=== PATIENT | female | born 1970 | race African-American/Black ===

== ENCOUNTER 2018-12-04 09:57 | Emergency (ER) | payer SELFPAY ==
[2018-12-04 11:00] LABS: Bilirubin Negative (Negative); Blood, Urine Moderate (Negative); Clarity CLOUDY (Clear); Glucose, Urine (Dipstick) Negative (Negative); Leukocyte Small (Negative); Nitrite Negative (Negative); Protein, Urine (Dipstick) 30 mg/dL (Neg-Trace); Urobilinogen 0.2 mg/dL (0.2-1.0)
[2018-12-04 11:02] LABS: Pregnancy Test - Urine (BHCG) Negative (Negative); Pregu Control Background? CLEAR/WHITE (CLR/WHITE); Pregu Control Bar Appear? YES (CONTROL BAR)
[2018-12-04 11:03] LABS: #Eosinphils 0.1 thou/uL (0.0-0.7); #Lymphocytes 2.7 thou/uL (1.20-3.40); #Monocytes 0.4 thou/uL (0.11-0.59); #Neutrophils 3.4 thou/uL (1.40-6.50); %Basophils 0.6 % (0.0-1.0); %Eosinophils 1.7 % (0.0-10.0); %Lymphocytes 40.4 % (21.0-51.0); %Monocytes 6.3 % (0.0-10.0); %Neutrophils 51.1 % (42.0-75.0); Hemoglobin 13.3 g/dL (12.0-16.0); Mean Corpuscular HGB CONC 30.8 g/dL (32.0-36.0); Mean Corpuscular Hemoglobin 26.9 pg (27.0-31.0); Mean Corpuscular Volume 87.4 fL (78.0-98.0); Mean Platelet Volume 7.6 fL (7.4-10.4); Platelet Count 412 thou/uL (130-400); RBC Distribution Width 12.6 % (11.5-14.5); Red Blood Cell (RBC) Count 4.93 mill/uL (4.20-5.40); White Blood Cell (WBC) Count 6.6 thou/uL (4.8-10.8)
[2018-12-04 11:07] LABS: Bacteria/HPF None Seen HPF (None Seen); Hyaline Casts/LPF 4-6 HYALINE CAST LPF (0-3 Hyaline); Pathc Cast-AUWi Flag 0.87 (0-2.49); RBC/HPF 21-50 HPF (0-3); WBC/HPF 21-50 HPF (0-3)
[2018-12-04] MEDS ORDERED: cloNIDine 0.1 MG TAB ONE (12:17)
== END 2018-12-04 12:35 | disposition home or self-care (01) ==
LOC: ERS 09:57
DX: N89.9 Noninflammatory disorder of vagina, unspecified (principal); Z91.14 Patient's other noncompliance with medication regimen; I10 Essential (primary) hypertension; F17.210 Nicotine dependence, cigarettes, uncomplicated; F32.9 Major depressive disorder, single episode, unspecified
CPT/HCPCS: 36415; 81003; 81015; 81025; 85025; 99283

== ENCOUNTER 2021-01-15 10:17 | Outpatient (CLI) | payer OTHER | END 2021-01-15 10:18 | disposition home or self-care (01) | LOC: RAD 10:17 | PROVIDERS: ATTEND Neurological Surgery | DX: M47.26 Other spondylosis with radiculopathy, lumbar region (principal) | CPT/HCPCS: 72100 ==

== ENCOUNTER 2021-03-09 13:17 | Outpatient (CLI) | payer OTHER | END 2021-03-09 13:18 | disposition home or self-care (01) | LOC: TBSIIMAG 13:17 | PROVIDERS: ATTEND Neurological Surgery | DX: M47.26 Other spondylosis with radiculopathy, lumbar region (principal) | CPT/HCPCS: 72100 ==

== ENCOUNTER 2021-11-10 10:57 | Outpatient (CLI) | payer OTHER ==
[2021-11-11 14:35] LABS: SARS-CoV-2 PCR by NAA Not Detected (NotDetected)
== END 2021-11-10 10:58 | disposition home or self-care (01) ==
LOC: LABBT 10:57
PROVIDERS: ATTEND Neurological Surgery
DX: Z01.812 Encounter for preprocedural laboratory examination (principal); M54.2 Cervicalgia; Z20.822 Contact with and (suspected) exposure to COVID-19
CPT/HCPCS: U0003; U0005

== ENCOUNTER 2021-11-15 10:20 | Day surgery (SDC) | payer OTHER ==
[2021-11-09 12:00] VITALS: BMI 58.8
== END 2021-11-15 13:50 | disposition home or self-care (01) ==
LOC: SDC/OP 10:20 → EDSTATUS 13:00 → SDC/OP 13:50
PROVIDERS: ATTEND Neurological Surgery
DX: M54.2 Cervicalgia (principal); M54.16 Radiculopathy, lumbar region; I10 Essential (primary) hypertension; E11.9 Type 2 diabetes mellitus without complications; F17.200 Nicotine dependence, unspecified, uncomplicated; E66.01 Morbid (severe) obesity due to excess calories; Z68.43 Body mass index [BMI] 50.0-59.9, adult; Z53.8 Procedure and treatment not carried out for other reasons; Z79.84 Long term (current) use of oral hypoglycemic drugs; Z79.899 Other long term (current) drug therapy